=== PATIENT | female | born 1950 | race Caucasian/White ===

== ENCOUNTER → 2017-06-13 | Outpatient (CLI) | payer BC ==
[~2017-06-13] MED LIST: DIFLUCAN 100MG100 MG PO; ESCITALOPRAM PO; FLUOXETINE; GLUCOPHAGE500 MG/TAB PO; HYDROCODONE/APAP PO; LEXAPRO20 MG PO; METFORMIN500 MG PO; MOBIC15 MG PO; MULTI VITAMINS1 TAB PO; NEXIUM 40MG40 MG PO; NEXIUM PO; NORCO 325 MG-51 TAB PO; PERCOCET 500 MG1 TAB PO; ROBAXIN500 MG PO; SAVELLA50 MG PO; XANAX XR0.5 MG PO; ZITHROMAX 250M250 MG PO; ZOVIRAX PO
== END ==
LOC: MC.RAD 05-26 15:00
DX: Z12.31 Encounter for screening mammogram for malignant neoplasm of breast (principal); N63.10 Unspecified lump in the right breast, unspecified quadrant

== ENCOUNTER → 2017-06-18 | Outpatient (CLI) | payer BC | LOC: MC.RAD 09:00 | DX: N63.12 Unspecified lump in the right breast, upper inner quadrant (principal) ==

== ENCOUNTER 2017-07-08 11:39 | Day surgery (SDC) | payer BC ==
[~2017-07-08] VITALS: Ht 161.9 cm; Wt 103.4 kg
[2017-07-08 12:05] VITALS: BP 152/88; PULSE 71; TEMP 97.6
[2017-07-08 13:31] VITALS: BP 143/76; PULSE 76
[2017-07-08 13:46] VITALS: BP 131/79; PULSE 64
[2017-07-08 14:01] VITALS: BP 139/78; PULSE 81
== END 2017-07-08 14:25 | disposition home or self-care (01) ==
LOC: SDCO 11:39
DX: Z12.11 Encounter for screening for malignant neoplasm of colon (principal); J44.9 Chronic obstructive pulmonary disease, unspecified; K21.9 Gastro-esophageal reflux disease without esophagitis; D12.0 Benign neoplasm of cecum; D12.4 Benign neoplasm of descending colon; D12.5 Benign neoplasm of sigmoid colon; K64.0 First degree hemorrhoids; K57.30 Diverticulosis of large intestine without perforation or abscess without bleeding; Z88.1 Allergy status to other antibiotic agents
CPT/HCPCS: OP; J2250; J2405; J3010; J7030

== ENCOUNTER → 2018-01-05 | Outpatient (CLI) | payer MEDICARE, OTHER | LOC: MC.RAD 12:53 | DX: N63.10 Unspecified lump in the right breast, unspecified quadrant (principal) ==